=== PATIENT | female | born 1965 | race Caucasian/White ===

== ENCOUNTER → 2016-07-31 | Outpatient (CLI) | payer BC | LOC: MW.CHIM 11:12 | PROVIDERS: ATTEND Internal Medicine | DX: R53.83 Other fatigue (principal) | CPT/HCPCS: 36415; 82652 ==

== ENCOUNTER → 2016-08-05 | Outpatient (CLI) | payer BC ==
--- NOTE | 2016-08-11 17:34 | MY ---
EXAMINATION: Bilateral digital mammography utilizing CAD. HISTORY: Screening exam. Comparison is made to previous studies dated 07/06/2014. FINDINGS: Bilateral scattered fibroglandular densities. No suspicious calcifications, masses or a rchitectural distortions. No pathologic appearing lymph nodes, no abnormal skin thickening or nipp le inversion. CAD highlighted regions appear normal at this time. IMPRESSION: BI-RADS category I - negative mammogram. Continued screening according to ACR-ACS gu idelines suggested. THE FALSE-NEGATIVE RATE OF MAMMOGRAM IS APPROXIMATELY 10%. MANAGEMENT OF A PALPABLE ABNORMALITY MUST BE BASED UPON CLINICAL GROUNDS. SENSITIVITY FOR DETECTION OF ABNORMALITIES IN DENSE BREASTS IS LOW. NOTE: A letter will be sent to the patient regarding findings. [facility] -- DAY[facility] Castellanos [phone] - FAX [phone]
== END ==
LOC: MW.MAM 08:54
PROVIDERS: ATTEND Internal Medicine
DX: Z12.31 Encounter for screening mammogram for malignant neoplasm of breast (principal)
CPT/HCPCS: G0202; G0202-26

== ENCOUNTER 2024-02-21 12:09 | Inpatient (IN) | payer BC, OTHER ==
[2024-02-21] MEDS: Diltiazem 25 MG/5 ML SDV IVPUSH ONE ×2 (12:30→12:55)
[2024-02-21] MEDS: Diltiazem 25 MG/5 ML SDV ONE ×2 (12:43)
[2024-02-21] MEDS: Adenosine 6 MG/2 ML SDV ONE (12:43)
[2024-02-21] MEDS: Albuterol/Ipratropium 3.0-0.5 MG/3 ML Neb Soln ONE (12:46)
[2024-02-21 12:51] LABS: BASOPHILS ABSOLUTE AUTO 0.08 K/uL (0.00-0.20); BASOPHILS PERCENT AUTO 0.8 % (0.0-1.0); EOSINOPHILS ABSOLUTE AUTO 0.07 K/uL (0.00-0.45); EOSINOPHILS PERCENT AUTO 0.7 % (0.0-6.0); HEMATOCRIT 54.3 % (37.0-47.0); HEMOGLOBIN 17.1 g/dL (12.0-16.0); IMMATURE GRAN ABSOLUTE AUTO 0.03 K/uL (0.00-0.05); IMMATURE GRAN PERCENT AUTO 0.3 % (0.0-0.4); LYMPHOCYTES ABSOLUTE AUTO 2.15 K/uL (1.00-4.80); LYMPHOCYTES PERCENT AUTO 20.8 % (24.0-44.0); MEAN CORPUSCULAR HEMOGLOBIN 28.2 pg (28.0-32.0); MEAN CORPUSCULAR HGB CONC 31.5 g/dL (32.0-36.0); MEAN CORPUSCULAR VOLUME 89.6 fL (83.0-99.0); MEAN PLATELET VOLUME 11.4 fL (9.4-12.3); MONOCYTES ABSOLUTE AUTO 0.79 K/uL (0.00-0.80); MONOCYTES PERCENT AUTO 7.6 % (0.0-8.0); NEUTROPHILS ABSOLUTE AUTO 7.24 K/uL (1.80-7.70); NEUTROPHILS PERCENT AUTO 69.8 % (41.0-71.0); PLATELET COUNT,PLT 329 K/uL (150-400); RED BLOOD CELL COUNT 6.06 M/uL (4.10-5.30); WHITE BLOOD CELL COUNT,WBC 10.36 K/uL (3.9-11.3)
[2024-02-21] MEDS: Albuterol/Ipratropium 3.0-0.5 MG/3 ML Neb Soln NEB ONE (12:55)
[2024-02-21 13:10] LABS: BLOOD UREA NITROGEN,BUN 16 mg/dL (7.0-18.0); CALCIUM 9.4 mg/dL (8.5-10.1); CARBON DIOXIDE,CO2 29.2 mmol/L (21.0-32.0); CHLORIDE,CL 104 mmol/L (98-107); GLUCOSE RANDOM 133 mg/dL (74-106); POTASSIUM,K 5.2 mmol/L (3.5-5.1); PRO B-TYPE NATRIUR PEPT,BNPPRO 3342 pg/mL (0-125); SODIUM,NA 142 mmol/L (136-145)
[2024-02-21 13:12] LABS: ESTIMATED GFR 66 mL/min (>60)
[2024-02-21] MEDS: Furosemide 40 MG/4 ML VIAL IVPUSH ONE ×2 (13:26→15:08)
[2024-02-21 13:36] LABS: TSH ULTRASENSITIVE 2.36 uIU/mL (0.36-3.74)
[2024-02-21] MEDS: Diltiazem 100 MG in Sodium Chloride 0.9% 100 ML IV SCH ×2 (13:36→20:09)
[2024-02-21] MEDS ORDERED: Polyethylene Glycol 3350 Powder 17 GM Packet PO PRN (14:40)
[2024-02-21 15:03] LABS: HEMOGLOBIN A1C 5.8 %
[2024-02-21] MEDS: Nicotine 14 MG/24 Hr Patch TRDERM SCH (15:07)
[2024-02-21] MEDS: Apixaban 5 MG Tab PO SCH (15:46)
[2024-02-21] MEDS: Albuterol/Ipratropium 3.0-0.5 MG/3 ML Neb Soln NEB PRN (16:39)
[2024-02-21] MEDS ORDERED: Diltiazem 100 MG in Sodium Chloride 0.9% 100 ML IV SCH (18:00)
[2024-02-22] MEDS: Acetaminophen 325 MG Tab PO PRN (04:07)
[2024-02-22 06:09] LABS: BASOPHILS ABSOLUTE AUTO 0.07 K/uL (0.00-0.20); BASOPHILS PERCENT AUTO 0.7 % (0.0-1.0); EOSINOPHILS ABSOLUTE AUTO 0.14 K/uL (0.00-0.45); EOSINOPHILS PERCENT AUTO 1.4 % (0.0-6.0); HEMATOCRIT 46.9 % (37.0-47.0); IMMATURE GRAN ABSOLUTE AUTO 0.03 K/uL (0.00-0.05); IMMATURE GRAN PERCENT AUTO 0.3 % (0.0-0.4); LYMPHOCYTES ABSOLUTE AUTO 1.71 K/uL (1.00-4.80); LYMPHOCYTES PERCENT AUTO 16.9 % (24.0-44.0); MEAN CORPUSCULAR HEMOGLOBIN 28.6 pg (28.0-32.0); MEAN CORPUSCULAR VOLUME 89.3 fL (83.0-99.0); MEAN PLATELET VOLUME 10.5 fL (9.4-12.3); MONOCYTES ABSOLUTE AUTO 0.98 K/uL (0.00-0.80); MONOCYTES PERCENT AUTO 9.7 % (0.0-8.0); NEUTROPHILS ABSOLUTE AUTO 7.21 K/uL (1.80-7.70); PLATELET COUNT,PLT 250 K/uL (150-400); RED BLOOD CELL COUNT 5.25 M/uL (4.10-5.30); WHITE BLOOD CELL COUNT,WBC 10.14 K/uL (3.9-11.3)
[2024-02-22 07:42] LABS: A/G RATIO 0.8 (0.9-1.6); ALBUMIN 2.7 g/dL (3.4-5.0); BILIRUBIN TOTAL 0.4 mg/dL (0.2-1.0); CALCIUM 8.6 mg/dL (8.5-10.1); CARBON DIOXIDE,CO2 35.4 mmol/L (21.0-32.0); EST CRCL DRUG DOSING (CG) 62.61 mL/min; PROTEIN TOTAL,TP 5.9 g/dL (6.4-8.2)
[2024-02-22 07:49] LABS: POTASSIUM,K 4.1 mmol/L (3.5-5.1)
[2024-02-22] MEDS: Furosemide 40 MG/4 ML VIAL IVPUSH SCH ×2 (08:11→15:52)
[2024-02-22] MEDS: Metoprolol Tartrate 5 MG/5 ML SDV IVPUSH ONE ×2 (09:59→18:19)
[2024-02-22] MEDS ORDERED: Metoprolol Tartrate 5 MG/5 ML SDV IVPUSH PRN ×2 (11:07→18:58)
[2024-02-22] MEDS: Metoprolol Tartrate 5 MG/5 ML SDV IVPUSH SCH (11:27)
[2024-02-22] MEDS: Iopamidol 755 MG/ML 500 ML Multipack Bottle IVPUSH STA (12:11)
[2024-02-22] MEDS: Ondansetron 4 MG Tab.DIS PO PRN (16:15)
[2024-02-23] MEDS: Furosemide 20 MG/2 ML VIAL IVPUSH ONE (05:15)
[2024-02-23 05:54] LABS: BASE EXCESS ARTERIAL 6.4 (-2.0-3.0); BICARBONATE,ARTERIAL 38 mEq/L (22-26); PCO2 ARTERIAL 88 mmHG (35-45); PO2 ARTERIAL 75 mmHG (80-105)
[2024-02-23 05:56] LABS: BASOPHILS ABSOLUTE AUTO 0.08 K/uL (0.00-0.20); BASOPHILS PERCENT AUTO 0.8 % (0.0-1.0); EOSINOPHILS ABSOLUTE AUTO 0.03 K/uL (0.00-0.45); EOSINOPHILS PERCENT AUTO 0.3 % (0.0-6.0); HEMATOCRIT 50.4 % (37.0-47.0); HEMOGLOBIN 15.4 g/dL (12.0-16.0); IMMATURE GRAN ABSOLUTE AUTO 0.04 K/uL (0.00-0.05); IMMATURE GRAN PERCENT AUTO 0.4 % (0.0-0.4); LYMPHOCYTES ABSOLUTE AUTO 1.01 K/uL (1.00-4.80); LYMPHOCYTES PERCENT AUTO 10.5 % (24.0-44.0); MEAN CORPUSCULAR HGB CONC 30.6 g/dL (32.0-36.0); MEAN CORPUSCULAR VOLUME 91.6 fL (83.0-99.0); MEAN PLATELET VOLUME 11.8 fL (9.4-12.3); MONOCYTES ABSOLUTE AUTO 0.73 K/uL (0.00-0.80); MONOCYTES PERCENT AUTO 7.6 % (0.0-8.0); NEUTROPHILS ABSOLUTE AUTO 7.76 K/uL (1.80-7.70); NEUTROPHILS PERCENT AUTO 80.4 % (41.0-71.0); PLATELET COUNT,PLT 271 K/uL (150-400); WHITE BLOOD CELL COUNT,WBC 9.65 K/uL (3.9-11.3)
[2024-02-23 06:43] LABS: A/G RATIO 0.8 (0.9-1.6); ALBUMIN 2.8 g/dL (3.4-5.0); BILIRUBIN TOTAL 0.5 mg/dL (0.2-1.0); CALCIUM 8.6 mg/dL (8.5-10.1); CARBON DIOXIDE,CO2 36.6 mmol/L (21.0-32.0); EST CRCL DRUG DOSING (CG) 62.61 mL/min; MAGNESIUM 1.8 mg/dL (1.8-2.4); POTASSIUM,K 4.5 mmol/L (3.5-5.1); PROTEIN TOTAL,TP 6.3 g/dL (6.4-8.2)
[2024-02-23] MEDS: Magnesium Sulfate/Water Premix 2 GM in Premix Bag 1 BAG IV ONE (08:20)
[2024-02-23 10:55] LABS: BASE EXCESS ARTERIAL 9.8 (-2.0-3.0); BICARBONATE,ARTERIAL 41 mEq/L (22-26); PCO2 ARTERIAL 90 mmHG (35-45); PO2 ARTERIAL 66 mmHG (80-105)
[2024-02-23] MEDS: Albuterol/Ipratropium 3.0-0.5 MG/3 ML Neb Soln NEB SCH (11:23)
[2024-02-23 15:03] LABS: BASE EXCESS ARTERIAL 10.1 (-2.0-3.0); BICARBONATE,ARTERIAL 37 mEq/L (22-26); PCO2 ARTERIAL 57 mmHG (35-45); PO2 ARTERIAL 105 mmHG (80-105)
[2024-02-23] MEDS: methylPREDNISolone Sodium Succinate 40 MG/1 ML SDV IVPUSH SCH (16:18)
[2024-02-23 17:43] LABS: BASE EXCESS ARTERIAL 10.8 (-2.0-3.0); BICARBONATE,ARTERIAL 38 mEq/L (22-26); PCO2 ARTERIAL 60 mmHG (35-45); PO2 ARTERIAL 70 mmHG (80-105)
[2024-02-23] MEDS: fentaNYL/Normal Saline 0 ML ONE (18:28)
[2024-02-23] MEDS: propofoL 0 ML ONE (18:28)
[2024-02-23] MEDS ORDERED: Amiodarone 200 MG Tab PO SCH (20:00)
== END 2024-02-23 22:15 | DRG 201 ==
LOC: MW.ED 12:09 → MW.ICU 13:50
PROVIDERS: ADMIT Family Medicine; ATTEND Family Medicine
PROC: 4A133R1 Monitoring of Arterial Saturation, Peripheral, Percutaneous Approach (ICD-10-PCS; principal; 2024-02-21)
DX: I48.91 Unspecified atrial fibrillation (principal); J96.02 Acute respiratory failure with hypercapnia; J96.01 Acute respiratory failure with hypoxia; J81.1 Chronic pulmonary edema; Z68.41 Body mass index [BMI] 40.0-44.9, adult; E66.9 Obesity, unspecified; I27.20 Pulmonary hypertension, unspecified; F17.210 Nicotine dependence, cigarettes, uncomplicated; Z88.8 Allergy status to other drugs, medicaments and biological substances; Z86.16 Personal history of COVID-19; Z96.659 Presence of unspecified artificial knee joint
CPT/HCPCS: 36415; 36600; 71045; 71045-26; 71275; 71275-26; 80048; 80053; 82803; 83036; 83605; 83735; 83880; 84443; 84484; 85025; 93005; 93010; 93306; 94640; 94660; 96374; 96375; 99285; 99285-25; A9270-GY; J0282; J1940; J2919; J3475; J3490; J7620-GY; Q9967